=== PATIENT | male | born 1990 | race Caucasian/White ===

== ENCOUNTER 2017-11-04 11:04 | Day surgery (SDC) | payer OTHER ==
[~2017-11-04] VITALS: Ht 188 cm; Wt 95.3 kg
[2017-11-04] MEDS ORDERED: fentaNYL 0.05 MG/ML VIAL ONE (12:43)
[2017-11-04] MEDS ORDERED: MIDAZOLAM 2 MG/2 ML VIAL ONE (12:44)
[2017-11-04] MEDS ORDERED: MIDAZOLAM 2 MG/2 ML VIAL IVP ONE (13:55)
== END 2017-11-04 15:18 | disposition home or self-care (01) ==
LOC: MDS 11:04 → MMU 11:05 → MDS 15:18
PROVIDERS: ATTEND Internal Medicine Gastroenterology
DX: K22.10 Ulcer of esophagus without bleeding (principal); K29.70 Gastritis, unspecified, without bleeding; K44.9 Diaphragmatic hernia without obstruction or gangrene; E66.3 Overweight; Z68.27 Body mass index [BMI] 27.0-27.9, adult; Z90.49 Acquired absence of other specified parts of digestive tract
CPT/HCPCS: 36415; 43239; 86677; J2250; J3010